=== PATIENT | female | born 1960 | race Caucasian/White ===

== ENCOUNTER → 2017-01-21 | Outpatient (CLI) | payer OTHER ==
[~2017-01-21] MED LIST: ACET325T96 PO; ALBUTEROL INH INH; CALCIUM W/VIT D PO; CHONDROITIN PO; GLUCOSAMINE PO; NPR500 PO; OXYBUTYNIN PO; SUMA100T16 PO; VICODIN PO
--- NOTE | 2017-01-21 12:34 | MAMMOGRAPHY REPORT ---
UNILATERAL LEFT DIGITAL DIAGNOSTIC MAMMOGRAM TOMOSYNTHESIS WITH CAD: 01/21/2017 CLINICAL HISTORY: 6 Month Follow-up Left. TECHNIQUE: Breast tomosynthesis in addition to standard 2D mammography was performed. Current study was also evaluated with a Computer Aided Detection (CAD) system. Left CC and MLO 2-D and tomosynth esis images and spot magnification left CC and ML views were obtained. COMPARISON: Comparison is made to exams dated: 07/22/2016 mammogram, 07/15/2016 mammogram, 07/06/2014 mammogram, 07/12/2015 mammogram, 07/05/2013 mammogram, and 06/30/2012 mammogram - [facility]. BREAST COMPOSITION: The tissue of the left breast is heterogeneously dense, which may obscure small masses. FINDINGS: Spot magnification views of the left breast again demonstrate a small 2 mm cluster of coa rse benign-appearing calcifications in the left 6:00 breast. The calcifications are stable compared to spot magnification views dated 07/22/2016. Given the stability and benign morphology, the calcif ications are considered benign. The remainder of the left breast is stable compared to prior exams, without suspicious masses, calci fications, or areas of architectural distortion noted. Other scattered benign-appearing left breast calcifications are stable. IMPRESSION: ACR BI-RADS CATEGORY 2: BENIGN Small 2 mm cluster of coarse calcifications in the left 6:00 breast is stable compared to the June 2016 exam, and considered benign given the morphology and stability. There is no mammographic evid ence of malignancy. Return to annual mammogram screening schedule is recommended, due June 2017. The patient has been verbally notified of the results. Approximately 10% of breast cancers are not detected with mammography. A negative mammographic repor t should not delay biopsy if a clinically suggestive mass is present. Yael Gonzalez M.D. ah/:01/21/2017 08:37:21 Plug Saw Operator: Lane CUI(R)(Vir[place]), [facility] letter sent: Normal 1/2 BI-RADS Code: ACR BI-RADS Category 2: Benign
== END | disposition home or self-care (01) ==
LOC: C.MAMM 08:04
PROVIDERS: ATTEND Obstetrics & Gynecology
DX: R92.1 Mammographic calcification found on diagnostic imaging of breast (principal)

== ENCOUNTER → 2017-07-16 | Outpatient (CLI) | payer OTHER ==
--- NOTE | 2017-07-16 13:56 | MAMMOGRAPHY REPORT ---
BILATERAL DIGITAL SCREENING MAMMOGRAM TOMOSYNTHESIS WITH CAD: 07/16/2017 CLINICAL HISTORY: Routine screening. Patient has no complaints. TECHNIQUE: Breast tomosynthesis in addition to standard 2D mammography was performed. Current study was also evaluated with a Computer Aided Detection (CAD) system. COMPARISON: Comparison is made to exams dated: 01/21/2017 mammogram, 07/15/2016 mammogram, 07/12/2015 ma mmogram, 07/06/2014 mammogram, 07/05/2013 mammogram, and 06/30/2012 mammogram - [facility] ter. BREAST COMPOSITION: The tissue of both breasts is heterogeneously dense, which may obscure small mas ses. FINDINGS: No suspicious masses, calcifications, or areas of architectural distortion are noted in ei ther breast. There has been no significant interval change compared to prior exams. IMPRESSION: ACR BI-RADS CATEGORY 1: NEGATIVE There is no mammographic evidence of malignancy. A 1 year screening mammogram is recommended. The pa tient will receive written notification of the results. Approximately 10% of breast cancers are not detected with mammography. A negative mammographic report should not delay biopsy if a clinically suggestive mass is present. Yael Gonzalez M.D. ah/:07/16/2017 07:29:52 Gyroscope Repairer: Deepali CUI(Hanane)(M), [facility] letter sent: Normal 1/2 BI-RADS Code: ACR BI-RADS Category 1: Negative
== END | disposition home or self-care (01) ==
LOC: C.MAMM 07:05
PROVIDERS: ATTEND Family Medicine
DX: Z12.31 Encounter for screening mammogram for malignant neoplasm of breast (principal)

== ENCOUNTER → 2017-08-25 | Outpatient (CLI) | payer OTHER | END | disposition home or self-care (01) | LOC: C.PAPS 11:45 | PROVIDERS: ATTEND Obstetrics & Gynecology | DX: Z12.4 Encounter for screening for malignant neoplasm of cervix (principal); Z11.51 Encounter for screening for human papillomavirus (HPV) ==